=== PATIENT | male | born 1975 | race Caucasian/White ===

== ENCOUNTER 2017-05-21 11:38 | Emergency (ER) | payer SELFPAY | END 2017-05-21 15:11 | disposition left against medical advice (07) | LOC: M ED 11:38 | DX: M79.673 Pain in unspecified foot (principal); Z53.21 Procedure and treatment not carried out due to patient leaving prior to being seen by health care provider ==

== ENCOUNTER 2017-12-10 18:18 | Emergency (ER) | payer MEDICAID, SELFPAY ==
[2017-12-10] MEDS: PERCOCET 5MG/325MG TAB PO (19:27)
== END 2017-12-10 19:41 | disposition home or self-care (01) ==
LOC: M ED 18:18
DX: M54.5 Low back pain (principal); G89.29 Other chronic pain; I10 Essential (primary) hypertension; F17.200 Nicotine dependence, unspecified, uncomplicated; Z79.899 Other long term (current) drug therapy
CPT/HCPCS: 99283

== ENCOUNTER 2018-05-09 01:16 | Emergency (ER) | payer MEDICAID, OTHER ==
[~2018-05-09] VITALS: Ht 170.2 cm; Wt 95.8 kg
[~2018-05-09 01:16] MED LIST: FOLI400T PO; IBUP200C25 PO; ONETAB4 PO; PERC5TAB12 PO
[2018-05-09] MEDS ORDERED: APAP500T10 PO (01:24)
--- NOTE | 2018-05-09 01:59 | REP ---
Clinical: Acute chest pain . Comparison: None . Findings: The mediastinum and cardiac silhouette are stable and within normal limits for portable technique. The lung angulo are clear without acute consolidation, effusion, or pneumothorax. Small focal area of suspected linear scarring versus atelectasis at the left base. Skeletal structures are intact. Impression: Small area of scarring versus atelectasis at the left base. No acute cardiopulmonary process appreciated. Electronically Signed by Kashif Randhawa MD 05/09/2018 01:51 A
[2018-05-09 02:23] LABS: BASO # 0.1 10^3/uL (0.0-0.2); BASO % 0.9 % (0.0-1.0); EOS # 0.2 10^3/uL (0.0-0.50); EOS % 2.6 % (0.0-3.0); HEMATOCRIT 44.3 % (42.0-52.0); HEMOGLOBIN 14.4 g/dl (13.5-17.5); LYMPH # 2.2 10^3/uL (1.5-4.5); LYMPH % 33.5 % (24.0-44.0); MEAN CORPUSCULAR HEMOGLOBIN 29.8 pg (27.0-33.0); MEAN CORPUSCULAR HGB CONC 32.5 g/dl (32.0-36.5); MEAN CORPUSCULAR VOLUME 91.7 fl (80.0-96.0); MONO # 0.7 10^3/uL (0.0-0.8); MONO % 10.9 % (0.0-5.0); NEUTROPHILS # 3.4 10^3/uL (1.8-7.7); NEUTROPHILS % 51.3 % (36.0-66.0); PLATELET COUNT, AUTOMATED 231 10^3/uL (150-450); RED BLOOD COUNT 4.83 10^6/uL (4.30-6.10); WHITE BLOOD COUNT 6.6 10^3/uL (4.0-10.0)
[2018-05-09 02:39] LABS: INR 0.93; PROTHROMBIN TIME 12.5 SECONDS (12.1-14.4)
[2018-05-09 02:47] LABS: ALBUMIN 3.4 GM/DL (3.2-5.2); ALT/SGPT 30 U/L (12-78); BILIRUBIN,TOTAL 0.2 MG/DL (0.2-1.0); BLOOD UREA NITROGEN 14 MG/DL (7-18); CALCIUM LEVEL 8.6 MG/DL (8.5-10.1); CARBON DIOXIDE LEVEL 28 MEQ/L (21-32); CHLORIDE LEVEL 108 MEQ/L (98-107); CPK CREATINE PHOSPHOKINASE 221 U/L (39-308); CREATININE FOR GFR 0.98 MG/DL (0.70-1.30); GLOMERULAR FILTRATION RATE > 60.0 (>60); GLUCOSE, FASTING 97 MG/DL (70-100); LIPASE 164 U/L (73-393); MB/CK RELATIVE INDEX 0.68 (< OR =4); POTASSIUM SERUM 4.3 MEQ/L (3.5-5.1); SODIUM LEVEL 143 MEQ/L (136-145); TOTAL PROTEIN 6.6 GM/DL (6.4-8.2); TROPONIN I < 0.02 NG/ML (< 0.10)
[2018-05-09] MEDS ORDERED: dexameTHASONE 20 MG/5 ML VIAL (J1100) IV ONE (03:15)
[2018-05-09] MEDS ORDERED: IPRATROPIUM 0.5MG/ALBUTEROL 2.5MG INH SOL UD 3ML (DUONEB)(J7620) NEB ONE (03:15)
[2018-05-09] MEDS ORDERED: ZITHTAB PO (04:51)
[2018-05-09] MEDS ORDERED: PRED20TA PO (04:51)
[2018-05-09 05:00] VITALS: BP 127/79
--- NOTE | 2018-05-10 12:32 | ECGEPIP ---
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
== END 2018-05-09 05:09 | disposition home or self-care (01) ==
LOC: M ED 01:16
DX: J20.9 Acute bronchitis, unspecified (principal); I10 Essential (primary) hypertension; G89.29 Other chronic pain; M54.9 Dorsalgia, unspecified; Z72.0 Tobacco use; Z79.899 Other long term (current) drug therapy
CPT/HCPCS: 71045; 80053; 82550; 82553; 83690; 85025; 85610; 93005; 93041; 94640; 94760; 96374; 99285; J1100

== ENCOUNTER 2018-05-25 17:02 | Emergency (ER) | payer OTHER ==
[~2018-05-25] VITALS: Ht 170.2 cm; Wt 95.9 kg
[~2018-05-25 17:02] MED LIST changes: +APAP500T10 PO; +PRED20TA PO; +ZITHTAB PO
[2018-05-25 17:34] LABS: BASO # 0.1 10^3/uL (0.0-0.2); BASO % 0.7 % (0.0-1.0); EOS # 0.1 10^3/uL (0.0-0.50); EOS % 1.6 % (0.0-3.0); HEMATOCRIT 50.6 % (42.0-52.0); HEMOGLOBIN 16.8 g/dl (13.5-17.5); LYMPH # 1.6 10^3/uL (1.5-4.5); LYMPH % 22.2 % (24.0-44.0); MEAN CORPUSCULAR HGB CONC 33.2 g/dl (32.0-36.5); MEAN CORPUSCULAR VOLUME 90.4 fl (80.0-96.0); MONO # 0.8 10^3/uL (0.0-0.8); MONO % 10.6 % (0.0-5.0); NEUTROPHILS # 4.7 10^3/uL (1.8-7.7); NEUTROPHILS % 63.8 % (36.0-66.0); PLATELET COUNT, AUTOMATED 269 10^3/uL (150-450); WHITE BLOOD COUNT 7.3 10^3/uL (4.0-10.0)
[2018-05-25 17:46] LABS: BLOOD UREA NITROGEN 12 MG/DL (7-18); CALCIUM LEVEL 9.2 MG/DL (8.5-10.1); CARBON DIOXIDE LEVEL 27 MEQ/L (21-32); CHLORIDE LEVEL 106 MEQ/L (98-107); CPK CREATINE PHOSPHOKINASE 158 U/L (39-308); CREATININE FOR GFR 0.92 MG/DL (0.70-1.30); GLOMERULAR FILTRATION RATE > 60.0 (>60); GLUCOSE, FASTING 92 MG/DL (70-100); MB/CK RELATIVE INDEX 1.01 (< OR =4); POTASSIUM SERUM 4.2 MEQ/L (3.5-5.1); SODIUM LEVEL 141 MEQ/L (136-145); TROPONIN I < 0.02 NG/ML (< 0.10)
[2018-05-25] MEDS ORDERED: ASPIRIN 81 MG CHEW TABLET PO ONE (18:00)
[2018-05-25 18:17] LABS: ALT/SGPT 43 U/L (12-78); BILIRUBIN,DIRECT 0.2 MG/DL (0.0-0.2); BILIRUBIN,TOTAL 0.7 MG/DL (0.2-1.0); LIPASE 110 U/L (73-393)
--- NOTE | 2018-05-25 19:16 | REP ---
Chest two views HISTORY: Chest pain Comparison: 05/09/2018 The lungs are clear. The heart is normal in size. The pulmonary vasculature is normal in appearance. The bony structure is intact. IMPRESSION: No acute disease. Electronically Signed by Thiago Hogan MD 05/25/2018 07:07 P
[2018-05-25 22:30] VITALS: BP 112/62
[2018-05-25 22:56] LABS: CPK CREATINE PHOSPHOKINASE 116 U/L (39-308); MB/CK RELATIVE INDEX 1.03 (< OR =4); TROPONIN I < 0.02 NG/ML (< 0.10)
--- NOTE | 2018-05-26 13:43 | ECGEPIP ---
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
--- NOTE | 2018-05-26 13:45 | ECGEPIP ---
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
== END 2018-05-25 23:04 | disposition home or self-care (01) ==
LOC: M ED 17:02
DX: R07.9 Chest pain, unspecified (principal); J02.9 Acute pharyngitis, unspecified; Z82.49 Family history of ischemic heart disease and other diseases of the circulatory system; F17.210 Nicotine dependence, cigarettes, uncomplicated

== ENCOUNTER 2018-07-04 10:58 | Emergency (ER) | payer OTHER ==
[~2018-07-04] VITALS: Ht 170.2 cm; Wt 98.1 kg
[2018-07-04 10:59] VITALS: BP 135/74
--- NOTE | 2018-07-04 12:50 | REP ---
LEFT KNEE, FIVE VIEWS: HISTORY: Pain. There is no acute fracture or dislocation. The joint spaces are normal in appearance. IMPRESSION: There is no acute fracture or dislocation. Electronically Signed by Thiago Hogan MD 07/04/2018 01:06 P
== END 2018-07-04 12:37 | disposition home or self-care (01) ==
LOC: M ED 10:58
DX: M25.562 Pain in left knee (principal); I10 Essential (primary) hypertension; M54.9 Dorsalgia, unspecified; F17.210 Nicotine dependence, cigarettes, uncomplicated; Z79.899 Other long term (current) drug therapy

== ENCOUNTER → 2018-07-31 | Outpatient (CLI) | payer OTHER ==
[2018-07-31 08:16] LABS: BASO # 0.1 10^3/uL (0.0-0.2); BASO % 0.5 % (0.0-1.0); EOS # 0.1 10^3/uL (0.0-0.50); EOS % 1.2 % (0.0-3.0); HEMATOCRIT 46.4 % (42.0-52.0); HEMOGLOBIN 15.6 g/dl (13.5-17.5); LYMPH # 2.1 10^3/uL (1.5-4.5); MEAN CORPUSCULAR HEMOGLOBIN 30.6 pg (27.0-33.0); MEAN CORPUSCULAR HGB CONC 33.6 g/dl (32.0-36.5); MEAN CORPUSCULAR VOLUME 91.2 fl (80.0-96.0); MONO # 0.9 10^3/uL (0.0-0.8); MONO % 8.8 % (0.0-5.0); NEUTROPHILS # 6.7 10^3/uL (1.8-7.7); NEUTROPHILS % 67.9 % (36.0-66.0); PLATELET COUNT, AUTOMATED 228 10^3/uL (150-450); RED BLOOD COUNT 5.09 10^6/uL (4.30-6.10); WHITE BLOOD COUNT 9.9 10^3/uL (4.0-10.0)
[2018-07-31 08:47] LABS: ALBUMIN 3.7 GM/DL (3.2-5.2); ALT/SGPT 32 U/L (12-78); BILIRUBIN,TOTAL 0.5 MG/DL (0.2-1.0); BLOOD UREA NITROGEN 13 MG/DL (7-18); CALCIUM LEVEL 8.8 MG/DL (8.5-10.1); CARBON DIOXIDE LEVEL 26 MEQ/L (21-32); CHLORIDE LEVEL 108 MEQ/L (98-107); CHOLESTEROL LEVEL 224 MG/DL (<200); CHOLESTEROL RISK RATIO 4.666 (<5); CREATININE FOR GFR 0.88 MG/DL (0.70-1.30); GLOMERULAR FILTRATION RATE > 60.0 (>60); GLUCOSE, FASTING 94 MG/DL (70-100); HDL CHOLESTEROL 48 MG/DL (>40); LDL CHOLESTEROL 151 MG/DL (<100); NON-HDL-C 176 MG/DL; SODIUM LEVEL 140 MEQ/L (136-145); TOTAL PROTEIN 6.4 GM/DL (6.4-8.2); TRIGLYCERIDES LEVEL 125 MG/DL (<150)
== END ==
LOC: M LAB 07:39
PROVIDERS: ATTEND Physician Assistant
DX: E78.2 Mixed hyperlipidemia (principal); R06.02 Shortness of breath

== ENCOUNTER 2018-10-15 03:10 | Emergency (ER) | payer OTHER ==
[~2018-10-15] VITALS: Ht 170.2 cm; Wt 95.5 kg
[2018-10-15] MEDS ORDERED: [UNRECOGNIZED DRUG - OTHER] (03:14)
[2018-10-15 03:50] LABS: BASO # 0.1 10^3/uL (0.0-0.2); BASO % 0.8 % (0.0-1.0); EOS # 0.2 10^3/uL (0.0-0.50); EOS % 2.3 % (0.0-3.0); HEMATOCRIT 49.5 % (42.0-52.0); HEMOGLOBIN 16.3 g/dl (13.5-17.5); LYMPH # 1.5 10^3/uL (1.5-4.5); LYMPH % 18.6 % (24.0-44.0); MEAN CORPUSCULAR HEMOGLOBIN 30.9 pg (27.0-33.0); MEAN CORPUSCULAR HGB CONC 32.9 g/dl (32.0-36.5); MEAN CORPUSCULAR VOLUME 93.8 fl (80.0-96.0); MONO # 0.8 10^3/uL (0.0-0.8); MONO % 9.5 % (0.0-5.0); NEUTROPHILS # 5.4 10^3/uL (1.8-7.7); NEUTROPHILS % 67.7 % (36.0-66.0); PLATELET COUNT, AUTOMATED 245 10^3/uL (150-450); RED BLOOD COUNT 5.28 10^6/uL (4.30-6.10); WHITE BLOOD COUNT 7.9 10^3/uL (4.0-10.0)
[2018-10-15 04:12] LABS: INR 0.93; PARTIAL THROMBOPLASTIN TIME 28.1 SECONDS (25.4-37.6); PROTHROMBIN TIME 12.6 SECONDS (12.1-14.4)
[2018-10-15 04:19] LABS: ALBUMIN 3.5 GM/DL (3.2-5.2); ALT/SGPT 47 U/L (12-78); BILIRUBIN,TOTAL 0.4 MG/DL (0.2-1.0); BLOOD UREA NITROGEN 10 MG/DL (7-18); CALCIUM LEVEL 8.7 MG/DL (8.5-10.1); CARBON DIOXIDE LEVEL 26 MEQ/L (21-32); CHLORIDE LEVEL 108 MEQ/L (98-107); CK-MB VALUE MASS < 1.0 NG/ML (<3.6); CPK CREATINE PHOSPHOKINASE 95 U/L (39-308); CREATININE FOR GFR 1.06 MG/DL (0.70-1.30); GLOMERULAR FILTRATION RATE > 60.0 (>60); GLUCOSE, FASTING 178 MG/DL (70-100); MB/CK RELATIVE INDEX 1.05 (< OR =4); POTASSIUM SERUM 4.1 MEQ/L (3.5-5.1); SODIUM LEVEL 141 MEQ/L (136-145); TOTAL PROTEIN 5.9 GM/DL (6.4-8.2); TROPONIN I < 0.02 NG/ML (< 0.10)
[2018-10-15] MEDS ORDERED: ISOVUE-370 76% 100ML VIAL (Q9967) As Ordered ONE (04:25)
[2018-10-15] MEDS ORDERED: KETOROLAC 30 MG/ML VIAL (J1885) IV ONE (04:30)
[2018-10-15] MEDS ORDERED: NS 500 ML IV ONE (04:30)
[2018-10-15 05:46] LABS: CK-MB VALUE MASS < 1.0 NG/ML (<3.6); CPK CREATINE PHOSPHOKINASE 81 U/L (39-308); MB/CK RELATIVE INDEX 1.23 (< OR =4); TROPONIN I < 0.02 NG/ML (< 0.10)
--- NOTE | 2018-10-15 05:46 | REPVR ---
EXAM: CT Angiography Chest With Contrast EXAM DATE/TIME: 10/15/2018 4:20 AM CLINICAL HISTORY: 43 years old, male; Chest pain; Type not specified; Additional info: Cp TECHNIQUE: Imaging protocol: Axial computed tomographic angiography images of the chest with intravenous contrast using CT angiography protocol. Coronal and sagittal reformatted images were created and reviewed. 3D rendering: MIP reconstructed images were created and reviewed. Radiation optimization: All CT scans at this facility use at least one of these dose optimization techniques: automated exposure control; mA and/or kV adjustment per patient size (includes targeted exams where dose is matched to clinical indication); or iterative reconstruction. Contrast material: ISO; Contrast volume: 75 ml; Contrast route: AC; COMPARISON: CR PORTABLE CHEST X-RAY 05/25/2018 5:42 PM FINDINGS: Pulmonary arteries: The main pulmonary artery measures 27 mm. No pulmonary embolism is identified. Aorta: The ascending thoracic aorta measures 27 mm. Other arteries: The left vertebral artery originates tracking from the arch. Lungs: Minimal patchy ground glass infiltrates bilaterally, greatest in the lower lobes. Pleural space: Normal. No pneumothorax. No pleural effusion. Heart: Normal. No cardiomegaly. No pericardial effusion. Kidneys and ureters: There is a left renal cyst measuring up to 17 mm. Lymph nodes: Small mediastinal lymph nodes which are within normal limits. Bones/joints: Unremarkable. No acute fracture. Soft tissues: Unremarkable. IMPRESSION: 1. Minimal patchy ground glass infiltrates bilaterally, greatest in the lower lobes. 2. Otherwise negative CTA chest. No pulmonary embolism is identified. Electronically signed by: Alber Ricardo On 10/15/2018 05:45:28 AM
[2018-10-15 06:01] VITALS: BP 138/89
--- NOTE | 2018-10-15 18:14 | ED PDOC ---
Post-Departure Follow-Up larissa gan faxed formal report of cta chest for fu Maria E Lake MD October 15, 2018 18:14
--- NOTE | 2018-10-15 19:37 | ECGEPIP ---
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
--- NOTE | 2018-10-15 19:38 | ECGEPIP ---
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
== END 2018-10-15 06:08 | disposition home or self-care (01) ==
LOC: M ED 03:10
DX: R07.1 Chest pain on breathing (principal); K21.9 Gastro-esophageal reflux disease without esophagitis; Z72.0 Tobacco use
CPT/HCPCS: 71275; 80053; 82550; 82553; 85025; 85610; 85730; 93005; 93041; 99284; J1885; Q9967

== ENCOUNTER 2019-01-31 02:06 | Emergency (ER) | payer OTHER ==
[~2019-01-31] VITALS: Ht 170.2 cm; Wt 103.2 kg
[~2019-01-31 02:06] MED LIST changes: +[UNRECOGNIZED DRUG - OTHER]
[2019-01-31] MEDS ORDERED: IBUP-1022 PO (07:15)
[2019-01-31] MEDS ORDERED: OXYC-517 PO (07:15)
[2019-01-31] MEDS ORDERED: LIDO5DIS41 TD (07:15)
[2019-01-31] MEDS ORDERED: CYCL5TAB PO (07:15)
[2019-01-31] MEDS ORDERED: ACET-683 PO (07:15)
[2019-01-31 07:52] VITALS: BP 134/90
== END 2019-01-31 07:57 | disposition home or self-care (01) ==
LOC: M ED 02:06
DX: G89.11 Acute pain due to trauma (principal); M54.5 Low back pain; I10 Essential (primary) hypertension; Z79.899 Other long term (current) drug therapy; F17.210 Nicotine dependence, cigarettes, uncomplicated

== ENCOUNTER → 2019-03-09 | Outpatient (CLI) | payer OTHER ==
[~2019-03-09] MED LIST changes: +ACET-683 PO; +CYCL5TAB PO; +IBUP-1022 PO; +LIDO5DIS41 TD; +OXYC-517 PO
--- NOTE | 2019-03-09 20:22 | REP ---
Clinical: Follow up abnormal lung findings. Technique: Axial noncontrast images from the thoracic inlet to the upper abdomen with coronal and sagittal re-formations. Comparison: 10/15/2018. Findings: Lung angulo demonstrate mild chronic-appearing age-related changes along with minimal scarring. 2 mm calcified granuloma in the right lower lobe identified. Previously noted ground-glass opacities have resolved. No acute consolidation, effusion, or pneumothorax. Tracheobronchial tree is relatively patent. No obvious adenopathy. Mediastinum demonstrates atherosclerotic changes to the thoracic aorta and coronary arteries without aortic aneurysm, cardiomegaly or pericardial effusion. Surrounding musculoskeletal structures without focal osseous abnormality. Limited upper abdomen demonstrates normal bilateral adrenal glands. Impression: 1. Mild chronic-appearing scattered changes. 2. Previously noted ground-glass opacities resolved. 3. No acute mediastinal or pleuroparenchymal process appreciated. Electronically Signed by Kashif Randhawa MD 03/09/2019 08:13 P
== END ==
LOC: M RAD 15:54
PROVIDERS: ATTEND Internal Medicine Pulmonary Disease
DX: J84.10 Pulmonary fibrosis, unspecified (principal); I70.0 Atherosclerosis of aorta; I25.10 Atherosclerotic heart disease of native coronary artery without angina pectoris

== ENCOUNTER → 2019-04-09 | Outpatient (CLI) | payer MEDICAID, OTHER, SELFPAY ==
--- NOTE | 2019-04-14 18:52 | SLEEPCENT ---
DATE OF PROCEDURE: 04/09/2019 INTERPRETATION Nocturnal polysomnography was performed for evaluation of sleep apnea syndrome symptoms consisting of excessive daytime sleepiness, snoring, observed apnea, gasping respirations, morning headaches, and nonrestorative sleep. A total of 8 hours and 35 minutes of data was reviewed for the entire polysomnogram with 344 minutes of sleep identified. Sleep latency was 15 minutes. REM latency was 93.5 minutes. All stages of sleep observed. Sleep efficiency was 88.3%. EKG showed normal sinus rhythm with an average heart rate of 78 beats per minute. Speeding and slowing was noted surrounding some respiratory events. No epileptiform discharge. This was a split night study: Part 1: Diagnostic study. There were 85 respiratory events identified of 10 seconds in duration or longer for an AHI of 85 during the first 88.5 minutes of sleep. The events were predominantly obstructive apnea/hypopneas. Respiratory arousal index (PYLE) was 14.9. Oxygen saturation danuta was 80%. Periodic limb movement index was elevated at 28.9. Part 2 C-PAP titration: Having clearly identified severe obstructive sleep apnea during the diagnostic portion of this study, the patient was fit with a ResMed Quattro full-face mask of small size, 5 cm of water pressure was applied to the circuit and the lights were dimmed. C-PAP initially begun at 5 cm of water pressure and was taken to a high of 19 cm of water pressure, although he appeared to do best on 17 cm of water pressure. On this setting his apnea-hypopnea index (AHI) was 0 and his PYLE was 0.5. Oxygen saturation danuta was 89%. Periodic limb movement index was 11.5. Supine REM sleep was seen on this pressure with a reasonably good waveform. IMPRESSION 1. Obstructive sleep apnea, severe, reasonably palliated on C-PAP at 17 cm of water pressure including supine REM sleep. 2. Periodic limb movement, moderate on diagnostic study and mild on C-PAP therapy. RECOMMENDATIONS Recommend continuation of C-PAP therapy at the above pressure via a small ResMed Quattro full-face mask or mask of his preference. Clinical correlation will be necessary to ensure eradication of symptoms.
== END ==
LOC: M SLEEP 19:40
PROVIDERS: ATTEND Internal Medicine Pulmonary Disease
DX: G47.33 Obstructive sleep apnea (adult) (pediatric) (principal); G47.61 Periodic limb movement disorder

== ENCOUNTER 2019-05-23 13:48 | Emergency (ER) | payer MEDICAID, OTHER ==
[~2019-05-23] VITALS: Ht 170.2 cm; Wt 109.9 kg
[2019-05-23] MEDS ORDERED: CHAN1PAK13 PO (14:06)
[2019-05-23] MEDS ORDERED: MOBI15TA PO (14:06)
[2019-05-23 15:07] LABS: INFLUENZA A AMPLIFICATION NEGATIVE (NEGATIVE); INFLUENZA B AMPLIFICATION NEGATIVE (NEGATIVE)
[2019-05-23 15:43] VITALS: BP 138/93
--- NOTE | 2019-05-23 16:17 | REP ---
Chest x-ray: Two views. History: Cough. Comparison chest x-ray: May 25, 2018. Findings: The lungs are well inflated and clear. Pleural angles are sharp. Heart size is normal. Pulmonary vasculature is not increased. No significant bony abnormality. Impression: No active disease. Electronically Signed by Peter Jasso MD 05/23/2019 04:08 P
== END 2019-05-23 15:54 | disposition home or self-care (01) ==
LOC: M ED 13:48
DX: J40 Bronchitis, not specified as acute or chronic (principal); I10 Essential (primary) hypertension; K21.9 Gastro-esophageal reflux disease without esophagitis; F17.200 Nicotine dependence, unspecified, uncomplicated; G47.33 Obstructive sleep apnea (adult) (pediatric); Z79.899 Other long term (current) drug therapy

== ENCOUNTER → 2019-09-01 | Outpatient (CLI) | payer OTHER ==
[~2019-09-01] MED LIST changes: +CHAN1PAK13 PO; +MOBI15TA PO
[2019-09-01 13:29] LABS: ALBUMIN 3.8 GM/DL (3.2-5.2); ALT/SGPT 54 U/L (12-78); BILIRUBIN,TOTAL 0.5 MG/DL (0.2-1.0); BLOOD UREA NITROGEN 16 MG/DL (7-18); CARBON DIOXIDE LEVEL 29 MEQ/L (21-32); CHLORIDE LEVEL 107 MEQ/L (98-107); CHOLESTEROL LEVEL 262 MG/DL (<200); CHOLESTEROL RISK RATIO 5.954 (<5); CREATININE FOR GFR 0.98 MG/DL (0.70-1.30); GLOMERULAR FILTRATION RATE > 60.0 (>60); GLUCOSE, FASTING 94 MG/DL (70-100); HDL CHOLESTEROL 44 MG/DL (>40); LDL CHOLESTEROL 176 MG/DL (<100); NON-HDL-C 218 MG/DL; POTASSIUM SERUM 4.2 MEQ/L (3.5-5.1); SODIUM LEVEL 139 MEQ/L (136-145); TOTAL PROTEIN 6.6 GM/DL (6.4-8.2); TRIGLYCERIDES LEVEL 209 MG/DL (<150)
== END ==
LOC: M WUC 10:15
PROVIDERS: ATTEND Physician Assistant
DX: E78.00 Pure hypercholesterolemia, unspecified (principal)

== ENCOUNTER → 2019-10-15 | Outpatient (CLI) | payer OTHER ==
[2019-10-15 18:39] LABS: BASO # 0.1 10^3/uL (0.0-0.2); BASO % 1.3 % (0.0-1.0); EOS # 0.1 10^3/uL (0.0-0.5); EOS % 2.3 % (0.0-3.0); HEMATOCRIT 47.2 % (42.0-52.0); HEMOGLOBIN 15.8 g/dl (13.5-17.5); MEAN CORPUSCULAR HEMOGLOBIN 30.9 pg (27.0-33.0); MEAN CORPUSCULAR HGB CONC 33.5 g/dl (32.0-36.5); MEAN CORPUSCULAR VOLUME 92.4 fl (80.0-96.0); MONO # 0.7 10^3/uL (0.0-0.8); MONO % 11.7 % (0.0-5.0); NEUTROPHILS # 3.2 10^3/uL (1.5-8.5); NEUTROPHILS % 51.1 % (36.0-66.0); PLATELET COUNT, AUTOMATED 253 10^3/uL (150-450); RED BLOOD COUNT 5.11 10^6/uL (4.30-6.10); WHITE BLOOD COUNT 6.2 10^3/uL (4.0-10.0)
[2019-10-15 18:51] LABS: APPEARANCE, URINE CLEAR (CLEAR); BACTERIA, URINE AUTO NEGATIVE (NEGATIVE); BILIRUBIN, URINE AUTO NEGATIVE (NEGATIVE); BLOOD, URINE BLOOD 2+ (NEGATIVE); COLOR, URINE YELLOW (YELLOW); GLUCOSE, URINE (UA) AUTO NEGATIVE (NEGATIVE); KETONE, URINE AUTO TRACE mg/dL (NEGATIVE); LEUKOCYTE ESTERASE, URINE AUTO NEGATIVE (NEGATIVE); MUCUS, URINE SMALL (NEGATIVE); NITRITE, URINE AUTO NEGATIVE (NEGATIVE); PROTEIN, URINE AUTO NEGATIVE (NEGATIVE); RBC, URINE AUTO 6 /HPF (0-3); SPECIFIC GRAVITY URINE AUTO 1.025 (1.002-1.035); SQUAMOUS EPITHELIAL CELL UR AU 0 /HPF (0-6); UROBILINOGEN, URINE AUTO 0.2 mg/dL (0.0-2.0); WBC, URINE AUTO 1 /HPF (0-3)
[2019-10-15 18:52] LABS: ALBUMIN 3.5 GM/DL (3.2-5.2); ALT/SGPT 52 U/L (12-78); BILIRUBIN,TOTAL 0.4 MG/DL (0.2-1.0); BLOOD UREA NITROGEN 12 MG/DL (7-18); CALCIUM LEVEL 8.5 MG/DL (8.5-10.1); CARBON DIOXIDE LEVEL 27 MEQ/L (21-32); CHLORIDE LEVEL 107 MEQ/L (98-107); CREATININE FOR GFR 1.06 MG/DL (0.70-1.30); GLOMERULAR FILTRATION RATE > 60.0 (>60); GLUCOSE, FASTING 124 MG/DL (70-100); POTASSIUM SERUM 4.5 MEQ/L (3.5-5.1); SODIUM LEVEL 141 MEQ/L (136-145); TOTAL PROTEIN 6.4 GM/DL (6.4-8.2)
== END ==
LOC: M WUC 11:31
PROVIDERS: ATTEND Nurse Practitioner Family
DX: Z01.812 Encounter for preprocedural laboratory examination (principal)

== ENCOUNTER 2020-02-15 14:28 | Outpatient (RCR) | payer OTHER | END 2020-02-17 | LOC: M PT 14:28 | PROVIDERS: ATTEND Physician Assistant | DX: Z96.611 Presence of right artificial shoulder joint (principal) ==

== ENCOUNTER → 2020-03-09 | Outpatient (CLI) | payer OTHER ==
[2020-03-09 11:20] LABS: BASO # 0.1 10^3/uL (0.0-0.2); BASO % 0.8 % (0.0-1.0); EOS # 0.3 10^3/uL (0.0-0.5); HEMATOCRIT 48.7 % (42.0-52.0); HEMOGLOBIN 15.6 g/dl (13.5-17.5); LYMPH # 2.4 10^3/uL (1.5-5.0); LYMPH % 26.4 % (24.0-44.0); MEAN CORPUSCULAR VOLUME 93.7 fl (80.0-96.0); MONO # 1.1 10^3/uL (0.0-0.8); MONO % 11.6 % (0.0-5.0); NEUTROPHILS # 4.9 10^3/uL (1.5-8.5); NEUTROPHILS % 54.1 % (36.0-66.0); PLATELET COUNT, AUTOMATED 306 10^3/uL (150-450); WHITE BLOOD COUNT 9.1 10^3/uL (4.0-10.0)
[2020-03-09 11:48] LABS: HEMOGLOBIN A1c 6.2 %
[2020-03-09 11:51] LABS: ALBUMIN 3.3 GM/DL (3.2-5.2); ALT/SGPT 86 U/L (12-78); BILIRUBIN,TOTAL 0.3 MG/DL (0.2-1.0); BLOOD UREA NITROGEN 15 MG/DL (7-18); CARBON DIOXIDE LEVEL 27 MEQ/L (21-32); CHLORIDE LEVEL 106 MEQ/L (98-107); CHOLESTEROL LEVEL 252 MG/DL (<200); CHOLESTEROL RISK RATIO 5.478 (<5); CREATININE FOR GFR 0.85 MG/DL (0.70-1.30); GLOMERULAR FILTRATION RATE > 60.0 (>60); GLUCOSE, FASTING 118 MG/DL (70-100); HDL CHOLESTEROL 46 MG/DL (>40); LDL CHOLESTEROL 149 MG/DL (<100); NON-HDL-C 206 MG/DL; POTASSIUM SERUM 4.3 MEQ/L (3.5-5.1); SODIUM LEVEL 138 MEQ/L (136-145); TOTAL PROTEIN 6.7 GM/DL (6.4-8.2); TRIGLYCERIDES LEVEL 283 MG/DL (<150)
== END ==
LOC: M WUC 08:06
PROVIDERS: ATTEND Nurse Practitioner Family
DX: Z00.00 Encounter for general adult medical examination without abnormal findings (principal)

== ENCOUNTER 2020-03-15 15:15 | Outpatient (RCR) | payer OTHER | END 2020-03-19 | LOC: M PT 15:15 | PROVIDERS: ATTEND Physician Assistant | DX: Z96.611 Presence of right artificial shoulder joint (principal) ==

== ENCOUNTER → 2020-08-09 | Outpatient (CLI) | payer OTHER ==
[~2020-08-09] MED LIST changes: -FOLI400T PO; +FOLI400T13 PO
[2020-08-09 15:22] LABS: BASO # 0.1 10^3/uL (0.0-0.2); BASO % 0.8 % (0.0-1.0); EOS # 0.2 10^3/uL (0.0-0.5); EOS % 1.9 % (0.0-3.0); HEMOGLOBIN 15.4 g/dl (13.5-17.5); LYMPH # 1.7 10^3/uL (1.5-5.0); LYMPH % 21.3 % (24.0-44.0); MEAN CORPUSCULAR HGB CONC 32.8 g/dl (32.0-36.5); MEAN CORPUSCULAR VOLUME 91.4 fl (80.0-96.0); MONO # 0.9 10^3/uL (0.0-0.8); MONO % 11.3 % (2.0-8.0); NEUTROPHILS % 63.1 % (36.0-66.0); PLATELET COUNT, AUTOMATED 261 10^3/uL (150-450); RED BLOOD COUNT 5.14 10^6/uL (4.30-6.10)
[2020-08-09 15:49] LABS: ALBUMIN 3.7 GM/DL (3.2-5.2); ALT/SGPT 80 U/L (12-78); BILIRUBIN,TOTAL 0.5 MG/DL (0.2-1.0); BLOOD UREA NITROGEN 15 MG/DL (7-18); CALCIUM LEVEL 9.6 MG/DL (8.5-10.1); CARBON DIOXIDE LEVEL 28 MEQ/L (21-32); CHLORIDE LEVEL 103 MEQ/L (98-107); CREATININE FOR GFR 0.85 MG/DL (0.70-1.30); GLOMERULAR FILTRATION RATE > 60.0 (>60); GLUCOSE, FASTING 91 MG/DL (70-100); LIPASE 103 U/L (73-393); POTASSIUM SERUM 3.9 MEQ/L (3.5-5.1); SODIUM LEVEL 138 MEQ/L (136-145)
[2020-08-09 15:57] LABS: MALB URINE SIEMENS 12.5 MG/L; MAU/CREAT RATIO 6.2 MCG/MG (0.0-30.0)
[2020-08-09 16:45] LABS: HEMOGLOBIN A1c 5.8 %
[2020-08-11 16:10] LABS: H PYLORI SERUM QUANT IGA <9.0 units (0.0-8.9); H PYLORI SERUM QUANT IGM <9.0 units (0.0-8.9); H PYLORI SERUM QUANT IgG ABY 0.24 (0.00-0.79)
== END ==
LOC: M PLALAB 14:07
PROVIDERS: ATTEND Nurse Practitioner Family
DX: R73.03 Prediabetes (principal); K21.9 Gastro-esophageal reflux disease without esophagitis

== ENCOUNTER → 2021-02-09 | Outpatient (CLI) | payer OTHER ==
[2021-02-09 17:01] LABS: BLOOD UREA NITROGEN 17 MG/DL (7-18); CALCIUM LEVEL 9.1 MG/DL (8.5-10.1); CARBON DIOXIDE LEVEL 29 MEQ/L (21-32); CHLORIDE LEVEL 107 MEQ/L (98-107); CREATININE FOR GFR 1.03 MG/DL (0.70-1.30); GLOMERULAR FILTRATION RATE > 60.0 (>60); GLUCOSE, FASTING 72 MG/DL (70-100); POTASSIUM SERUM 4.2 MEQ/L (3.5-5.1); SODIUM LEVEL 140 MEQ/L (136-145)
[2021-02-09 17:08] LABS: HEMOGLOBIN A1c 5.4 %
== END ==
LOC: M WUC 14:33
PROVIDERS: ATTEND Nurse Practitioner Family
DX: R73.03 Prediabetes (principal)

== ENCOUNTER 2021-04-17 14:03 | Emergency (ER) | payer OTHER ==
[~2021-04-17] VITALS: Ht 170.2 cm; Wt 99.8 kg
[2021-04-17 14:04] VITALS: BP 138/78
[2021-04-18] MEDS ORDERED: PANT40TA29 PO (17:29)
[2021-04-18] MEDS ORDERED: METF500T13 PO (17:29)
[2021-04-18] MEDS ORDERED: ATOR40TA75 PO (17:29)
[2021-04-18] MEDS ORDERED: BUPR150T5 (17:29)
[2021-04-18] MEDS ORDERED: FLUO40CA PO (17:29)
[2021-07-11] MEDS ORDERED: GABA-282 PO (07:26)
[2021-07-11] MEDS ORDERED: BUPR1TAB56 PO (07:26)
[2021-07-11] MEDS ORDERED: TOPI50TA9 PO (07:26)
[2021-07-11] MEDS ORDERED: PROP20TA72 PO (07:26)
[2021-07-11] MEDS ORDERED: FLUO20CA22 PO (07:26)
[2021-07-11] MEDS ORDERED: ALBU8.5H INH (07:26)
== END 2021-04-17 22:35 | disposition left against medical advice (07) ==
LOC: M ED 14:03
DX: Z53.29 Procedure and treatment not carried out because of patient's decision for other reasons (principal)

== ENCOUNTER 2021-04-18 17:12 | Emergency (ER) | payer OTHER ==
[~2021-04-18] VITALS: Ht 170.2 cm; Wt 98.3 kg
[2021-04-18 17:13] VITALS: BP 142/89
[2021-04-18] MEDS ORDERED: BUPR150T5 (17:29)
[2021-04-18] MEDS ORDERED: FLUO40CA PO (17:29)
[2021-04-18] MEDS ORDERED: ATOR40TA75 PO (17:29)
[2021-04-18] MEDS ORDERED: METF500T13 PO (17:29)
[2021-04-18] MEDS ORDERED: PANT40TA29 PO (17:29)
[2021-07-11] MEDS ORDERED: FLUO20CA22 PO (07:26)
[2021-07-11] MEDS ORDERED: ALBU8.5H INH (07:26)
[2021-07-11] MEDS ORDERED: PROP20TA72 PO (07:26)
[2021-07-11] MEDS ORDERED: TOPI50TA9 PO (07:26)
[2021-07-11] MEDS ORDERED: GABA-282 PO (07:26)
[2021-07-11] MEDS ORDERED: BUPR1TAB56 PO (07:26)
== END 2021-04-18 21:42 | disposition left against medical advice (07) ==
LOC: M ED 17:12
DX: Z53.29 Procedure and treatment not carried out because of patient's decision for other reasons (principal)

== ENCOUNTER → 2021-04-20 | Outpatient (CLI) | payer OTHER ==
[~2021-04-20] MED LIST changes: +ATOR40TA75; +BUPR150T5; +FLUO40CA; +METF500T13; +PANT40TA29
[2021-04-20 16:03] LABS: BASO # 0.1 10^3/uL (0.0-0.2); BASO % 0.8 % (0.0-1.0); EOS # 0.2 10^3/uL (0.0-0.5); EOS % 2.7 % (0.0-3.0); HEMATOCRIT 45.6 % (42.0-52.0); HEMOGLOBIN 14.3 g/dl (13.5-17.5); LYMPH # 1.7 10^3/uL (1.5-5.0); LYMPH % 23.6 % (24.0-44.0); MEAN CORPUSCULAR HEMOGLOBIN 29.3 pg (27.0-33.0); MEAN CORPUSCULAR HGB CONC 31.4 g/dl (32.0-36.5); MEAN CORPUSCULAR VOLUME 93.4 fl (80.0-96.0); MONO # 0.9 10^3/uL (0.0-0.8); MONO % 11.8 % (2.0-8.0); NEUTROPHILS # 4.4 10^3/uL (1.5-8.5); NEUTROPHILS % 59.7 % (36.0-66.0); PLATELET COUNT, AUTOMATED 276 10^3/uL (150-450); RED BLOOD COUNT 4.88 10^6/uL (4.30-6.10); WHITE BLOOD COUNT 7.4 10^3/uL (4.0-10.0)
[2021-04-20 16:47] LABS: ALBUMIN 3.6 GM/DL (3.2-5.2); ALT/SGPT 36 U/L (12-78); BILIRUBIN,TOTAL 0.6 MG/DL (0.2-1.0); BLOOD UREA NITROGEN 17 MG/DL (7-18); C REACTIVE PROTEIN QUANTITATIV 0.72 MG/DL (0.00-0.30); CALCIUM LEVEL 9.3 MG/DL (8.5-10.1); CARBON DIOXIDE LEVEL 27 MEQ/L (21-32); CHLORIDE LEVEL 105 MEQ/L (98-107); CREATININE FOR GFR 0.88 MG/DL (0.70-1.30); GLOMERULAR FILTRATION RATE > 60.0 (>60); GLUCOSE, FASTING 103 MG/DL (70-100); MAGNESIUM LEVEL 2.1 MG/DL (1.8-2.4); POTASSIUM SERUM 4.1 MEQ/L (3.5-5.1); RHEUMATOID FACTOR QUANT 12.9 IU/ML (<15.0); SODIUM LEVEL 139 MEQ/L (136-145); THYROID STIMULATING HORMONE 0.827 uIU/ML (0.358-3.740); TOTAL PROTEIN 6.6 GM/DL (6.4-8.2)
[2021-04-20 17:01] LABS: VITAMIN B12 LEVEL 321 PG/ML
[2021-04-20 17:03] LABS: FOLATE 6.9 NG/ML
[2021-04-20 17:08] LABS: ERYTHROCYTE SEDIMENTATION RATE 5 mm/hr (0-15)
[2021-04-22 16:11] LABS: ANTINUCLEAR ANTIBODIES DIRECT Negative (Negative); Lyme Disease IgG/IgM Antibodie <0.91 ISR (0.00-0.90); Lyme Disease IgM Ab Quantitati <0.80 index (0.00-0.79); SJOGREN'S ANTI SS-A <0.2 AI (0.0-0.9); SJOGREN'S ANTI SS-B <0.2 AI (0.0-0.9)
== END ==
LOC: M WUC 13:01
PROVIDERS: ATTEND Nurse Practitioner Family
DX: R21 Rash and other nonspecific skin eruption (principal); R51.9 Headache, unspecified

== ENCOUNTER → 2021-05-05 | Outpatient (CLI) | payer OTHER ==
[~2021-05-05] MED LIST changes: +ALBU8.5H INH; -ATOR40TA75; +ATOR40TA75 PO; +BUPR1TAB56 PO; +FLUO20CA22 PO; -FLUO40CA; +FLUO40CA PO; +GABA-282 PO; -METF500T13; +METF500T13 PO; -PANT40TA29; +PANT40TA29 PO; +PROP20TA72 PO; +TOPI50TA9 PO
== END ==
LOC: M RAD 11:19
PROVIDERS: ATTEND Nurse Practitioner Family
DX: R51.9 Headache, unspecified (principal)

== ENCOUNTER → 2021-07-20 | Outpatient (CLI) | payer OTHER | LOC: M LABSMTC 09:44 | PROVIDERS: ATTEND Anesthesiology | DX: Z11.52 Encounter for screening for COVID-19 (principal) ==

== ENCOUNTER 2021-07-25 08:32 | Day surgery (SDC) | payer OTHER ==
[~2021-07-25] VITALS: Ht 170.2 cm; Wt 96.2 kg
[~2021-07-25 08:32] MED LIST changes: +LIDOCAINE 2% 100MG/5ML SDV (FOR ANES.) As Ordered ONE; +NS 1,000 ML IV ONE; +propofoL 200 MG/20 ML VIAL As Ordered ONE
[2021-07-25] MEDS ORDERED: propofoL 200 MG/20 ML VIAL As Ordered ONE (10:58)
[2021-07-25 11:10] VITALS: BP 121/76
== END 2021-07-25 11:25 | disposition home or self-care (01) ==
LOC: M OPP 08:32
PROVIDERS: ATTEND Surgery
DX: R13.10 Dysphagia, unspecified (principal); K21.9 Gastro-esophageal reflux disease without esophagitis; K22.89 Other specified disease of esophagus; I10 Essential (primary) hypertension; M19.90 Unspecified osteoarthritis, unspecified site; R06.83 Snoring; G47.33 Obstructive sleep apnea (adult) (pediatric); F17.210 Nicotine dependence, cigarettes, uncomplicated; Z79.899 Other long term (current) drug therapy

== ENCOUNTER → 2021-08-04 | Outpatient (CLI) | payer OTHER ==
[~2021-08-04] MED LIST changes: -LIDOCAINE 2% 100MG/5ML SDV (FOR ANES.) As Ordered ONE; -NS 1,000 ML IV ONE; -propofoL 200 MG/20 ML VIAL As Ordered ONE
== END ==
LOC: M WUC 14:45
PROVIDERS: ATTEND Physician Assistant
DX: M25.541 Pain in joints of right hand (principal)

== ENCOUNTER → 2021-10-05 | Outpatient (CLI) | payer OTHER ==
[~2021-10-05] MED LIST changes: +BUPR-71; -BUPR150T5
[2021-10-05 12:27] LABS: ALBUMIN 3.4 GM/DL (3.2-5.2); ALT/SGPT 20 U/L (12-78); BILIRUBIN,TOTAL 0.5 MG/DL (0.2-1.0); BLOOD UREA NITROGEN 17 MG/DL (7-18); CALCIUM LEVEL 9.7 MG/DL (8.5-10.1); CARBON DIOXIDE LEVEL 29 MEQ/L (21-32); CHLORIDE LEVEL 107 MEQ/L (98-107); CHOLESTEROL LEVEL 140 MG/DL (<200); CHOLESTEROL RISK RATIO 2.857 (<5); CREATININE FOR GFR 0.96 MG/DL (0.70-1.30); GLOMERULAR FILTRATION RATE > 60.0 (>60); GLUCOSE, FASTING 94 MG/DL (70-100); HDL CHOLESTEROL 49 MG/DL (>40); LDL CHOLESTEROL 72 MG/DL (<100); NON-HDL-C 91 MG/DL; POTASSIUM SERUM 4.5 MEQ/L (3.5-5.1); SODIUM LEVEL 142 MEQ/L (136-145); TOTAL PROTEIN 6.4 GM/DL (6.4-8.2); TRIGLYCERIDES LEVEL 93 MG/DL (<150)
[2021-10-05 12:54] LABS: MALB URINE SIEMENS 20.8 MG/L
[2021-10-05 13:36] LABS: HEMOGLOBIN A1c 5.5 %
== END ==
LOC: M WUC 08:52
PROVIDERS: ATTEND Nurse Practitioner Family
DX: E78.2 Mixed hyperlipidemia (principal); R73.03 Prediabetes

== ENCOUNTER → 2021-10-06 | Outpatient (CLI) | payer OTHER ==
[2021-10-06 14:54] LABS: BASO # 0.1 10^3/uL (0.0-0.2); BASO % 0.8 % (0.0-1.0); EOS # 0.1 10^3/uL (0.0-0.5); EOS % 2.3 % (0.0-3.0); HEMATOCRIT 42.7 % (42.0-52.0); HEMOGLOBIN 14.1 g/dl (13.5-17.5); LYMPH # 1.6 10^3/uL (1.5-5.0); LYMPH % 26.9 % (24.0-44.0); MEAN CORPUSCULAR HEMOGLOBIN 30.4 pg (27.0-33.0); MONO # 0.8 10^3/uL (0.0-0.8); MONO % 13.3 % (2.0-8.0); NEUTROPHILS # 3.4 10^3/uL (1.5-8.5); NEUTROPHILS % 55.4 % (36.0-66.0); PLATELET COUNT, AUTOMATED 257 10^3/uL (150-450); RED BLOOD COUNT 4.64 10^6/uL (4.30-6.10); WHITE BLOOD COUNT 6.1 10^3/uL (4.0-10.0)
[2021-10-06 15:18] LABS: INR 0.93; PARTIAL THROMBOPLASTIN TIME 27.8 SECONDS (25.9-37.0); PROTHROMBIN TIME 12.9 SECONDS (12.7-14.5)
== END ==
LOC: M LAB 14:13
PROVIDERS: ATTEND Nurse Practitioner Family
DX: Z01.818 Encounter for other preprocedural examination (principal)

== ENCOUNTER 2021-10-13 13:47 | Outpatient (RCR) | payer OTHER | END 2021-10-17 | LOC: M PT 13:47 | PROVIDERS: ATTEND Physician Assistant Surgical | DX: M54.50 Low back pain, unspecified (principal) ==

== ENCOUNTER → 2022-01-17 | Outpatient (RCR) | payer OTHER | LOC: M PT 01-03 12:53 | PROVIDERS: ATTEND Physician Assistant Surgical | DX: M54.50 Low back pain, unspecified (principal) ==

== ENCOUNTER → 2022-02-02 | Outpatient (CLI) | payer OTHER ==
[~2022-02-02] MED LIST changes: +DULO1CAP4
== END ==
LOC: M SOG 13:31
PROVIDERS: ATTEND Physician Assistant
DX: M79.644 Pain in right finger(s) (principal)

== ENCOUNTER → 2022-02-06 | Outpatient (CLI) | payer OTHER | LOC: M LABSMTC 09:07 | PROVIDERS: ATTEND Anesthesiology | DX: Z01.812 Encounter for preprocedural laboratory examination (principal); Z11.52 Encounter for screening for COVID-19 ==

== ENCOUNTER 2022-02-09 09:29 | Day surgery (SDC) | payer OTHER ==
[~2022-02-09] VITALS: Ht 170.2 cm; Wt 88.5 kg
[2022-02-09] MEDS ORDERED: LR 1,000 ML IV SCH (09:50)
[2022-02-09] MEDS ORDERED: fentaNYL 100 MCG/2 ML INJECTION As Ordered ONE (10:20)
[2022-02-09] MEDS ORDERED: MIDAZOLAM INJ 2MG/2ML VIAL (J2250 PER 1MG) As Ordered ONE (10:20)
[2022-02-09] MEDS ORDERED: propofoL 200 MG/20 ML VIAL As Ordered ONE (10:21)
[2022-02-09] MEDS ORDERED: ONDANSETRON 4MG 2ML VIAL As Ordered ONE (10:22)
[2022-02-09] MEDS ORDERED: BUPIVACAINE HCL 0.25% 30ML VIAL As Ordered ONE (11:20)
[2022-02-09] MEDS ORDERED: BACITRACIN OINTMENT 30GM TUBE As Ordered ONE (11:20)
[2022-02-09 12:10] VITALS: BP 116/62
== END 2022-02-09 13:40 | disposition home or self-care (01) ==
LOC: M SDC 09:29
PROVIDERS: ATTEND Orthopaedic Surgery Hand Surgery
DX: D36.7 Benign neoplasm of other specified sites (principal); R73.03 Prediabetes; E78.00 Pure hypercholesterolemia, unspecified; F17.210 Nicotine dependence, cigarettes, uncomplicated
CPT/HCPCS: 11423; 88305; J2250; J2405; J3010

== ENCOUNTER 2022-02-13 14:25 | Outpatient (RCR) | payer OTHER | END 2022-02-16 | LOC: M PT 14:25 | PROVIDERS: ATTEND Physician Assistant Surgical | DX: M54.50 Low back pain, unspecified (principal) ==

== ENCOUNTER 2022-03-08 14:27 | Outpatient (RCR) | payer OTHER | END 2022-03-19 | LOC: M PT 14:27 | PROVIDERS: ATTEND Physician Assistant Surgical | DX: M54.50 Low back pain, unspecified (principal) ==

== ENCOUNTER → 2022-04-15 | Outpatient (CLI) | payer OTHER ==
[~2022-04-15] MED LIST changes: +AIMO70IN2; +DIVA500T94 PO
== END ==
LOC: M LABSMTC 10:12
PROVIDERS: ATTEND Anesthesiology
DX: Z01.812 Encounter for preprocedural laboratory examination (principal); Z11.52 Encounter for screening for COVID-19

== ENCOUNTER 2022-04-18 06:50 | Day surgery (SDC) | payer OTHER ==
[~2022-04-18] VITALS: Ht 170.2 cm; Wt 97.0 kg
[~2022-04-18 06:50] MED LIST changes: +NS 1,000 ML IV ONE
[2022-04-18] MEDS ORDERED: MIDAZOLAM INJ 2MG/2ML VIAL (J2250 PER 1MG) As Ordered ONE (07:06)
[2022-04-18] MEDS ORDERED: LIDOCAINE 2% 100MG/5ML SDV (FOR ANES.) As Ordered ONE (07:06)
[2022-04-18] MEDS ORDERED: propofoL 200 MG/20 ML VIAL As Ordered ONE ×2 (07:06→08:41)
[2022-04-18 09:27] VITALS: BP 124/72
== END 2022-04-18 09:43 | disposition home or self-care (01) ==
LOC: M OPP 06:50
PROVIDERS: ATTEND Surgery
DX: Z12.11 Encounter for screening for malignant neoplasm of colon (principal); K63.5 Polyp of colon; K21.9 Gastro-esophageal reflux disease without esophagitis; E78.00 Pure hypercholesterolemia, unspecified; G47.30 Sleep apnea, unspecified; Z99.89 Dependence on other enabling machines and devices; Z79.02 Long term (current) use of antithrombotics/antiplatelets; Z79.899 Other long term (current) drug therapy; F17.200 Nicotine dependence, unspecified, uncomplicated
CPT/HCPCS: 45380; 88305; J2250

== ENCOUNTER 2022-06-06 18:51 | Emergency (ER) | payer OTHER ==
[~2022-06-06] VITALS: Ht 170.2 cm; Wt 94.5 kg
[~2022-06-06 18:51] MED LIST changes: -NS 1,000 ML IV ONE
[2022-06-07] MEDS ORDERED: NS 1,000 ML IV ONE
[2022-06-07] MEDS ORDERED: ONDANSETRON 4MG 2ML VIAL IV ONE
[2022-06-07] MEDS ORDERED: ISOVUE-370 76% 100ML VIAL As Ordered ONE (00:25)
[2022-06-07 00:42] VITALS: BP 142/88
[2022-06-07 00:43] LABS: BASO # 0.1 10^3/uL (0.0-0.2); BASO % 0.8 % (0.0-1.0); EOS # 0.1 10^3/uL (0.0-0.5); EOS % 1.9 % (0.0-3.0); HEMATOCRIT 47.8 % (42.0-52.0); HEMOGLOBIN 15.4 g/dl (13.5-17.5); LYMPH # 2.4 10^3/uL (1.5-5.0); LYMPH % 36.9 % (24.0-44.0); MEAN CORPUSCULAR HEMOGLOBIN 29.6 pg (27.0-33.0); MEAN CORPUSCULAR HGB CONC 32.2 g/dl (32.0-36.5); MEAN CORPUSCULAR VOLUME 91.9 fl (80.0-96.0); MONO # 0.8 10^3/uL (0.0-0.8); MONO % 12.7 % (2.0-8.0); NEUTROPHILS % 46.8 % (36.0-66.0); PLATELET COUNT, AUTOMATED 240 10^3/uL (150-450); WHITE BLOOD COUNT 6.4 10^3/uL (4.0-10.0)
[2022-06-07 01:01] LABS: ALBUMIN 3.8 G/DL (3.2-5.2); BILIRUBIN,DIRECT 0.2 MG/DL (<0.4); BILIRUBIN,TOTAL 0.6 MG/DL (0.3-1.2); TOTAL PROTEIN 6.8 G/DL (5.7-8.2)
[2022-06-07] MEDS ORDERED: ONDA4TAB6 PO (01:25)
== END 2022-06-07 02:10 | disposition home or self-care (01) ==
LOC: M ED 19:52
DX: R10.9 Unspecified abdominal pain (principal); R11.2 Nausea with vomiting, unspecified; I10 Essential (primary) hypertension; J45.909 Unspecified asthma, uncomplicated; K21.9 Gastro-esophageal reflux disease without esophagitis; F17.200 Nicotine dependence, unspecified, uncomplicated; Z79.899 Other long term (current) drug therapy
CPT/HCPCS: 74177; 80047; 80076; 83690; 85025; 96374; 99284; J2405

== ENCOUNTER → 2022-06-19 | Outpatient (CLI) | payer OTHER ==
[~2022-06-19] MED LIST changes: +ONDA4TAB6 PO
== END ==
LOC: M RAD 10:16
PROVIDERS: ATTEND Nurse Practitioner Family
DX: M25.512 Pain in left shoulder (principal); M25.522 Pain in left elbow

== ENCOUNTER 2023-01-05 13:40 | Emergency (ER) | payer OTHER ==
[~2023-01-05] VITALS: Ht 152.4 cm; Wt 85.0 kg
[~2023-01-05 13:40] MED LIST changes: +TOPI-254 PO; -TOPI50TA9 PO
[2023-01-05] MEDS ORDERED: METOCLOPRAMIDE INJ 10MG/2ML VIAL IV ONE (14:05)
[2023-01-05] MEDS ORDERED: KETOROLAC 30 MG/ML 1ML VIAL IV ONE (14:05)
[2023-01-05] MEDS ORDERED: NS 1,000 ML IV ONE (14:05)
[2023-01-05] MEDS ORDERED: diphenhydrAMINE 50MG/ML VIAL IV ONE (14:05)
[2023-01-05 14:33] LABS: BASO # 0.1 10^3/uL (0.0-0.2); BASO % 0.8 % (0.0-1.0); EOS # 0.1 10^3/uL (0.0-0.5); EOS % 1.2 % (0.0-3.0); HEMATOCRIT 51.5 % (42.0-52.0); HEMOGLOBIN 17.2 g/dl (13.5-17.5); LYMPH # 1.8 10^3/uL (1.5-5.0); LYMPH % 28.2 % (24.0-44.0); MEAN CORPUSCULAR HEMOGLOBIN 30.1 pg (27.0-33.0); MEAN CORPUSCULAR HGB CONC 33.4 g/dl (32.0-36.5); MEAN CORPUSCULAR VOLUME 90.2 fl (80.0-96.0); MONO # 0.6 10^3/uL (0.0-0.8); MONO % 9.8 % (2.0-8.0); NEUTROPHILS # 3.9 10^3/uL (1.5-8.5); NEUTROPHILS % 59.1 % (36.0-66.0); PLATELET COUNT, AUTOMATED 285 10^3/uL (150-450); RED BLOOD COUNT 5.71 10^6/uL (4.30-6.10); WHITE BLOOD COUNT 6.5 10^3/uL (4.0-10.0)
[2023-01-05 15:04] LABS: LIPASE 42 U/L (12-53)
[2023-01-05 15:06] LABS: ALBUMIN 4.1 G/DL (3.2-5.2); ALKALINE PHOSPHATASE 82 U/L (46-116); ALT/SGPT 13 U/L (7.0-40); AST/SGOT < 8 U/L (<34); BILIRUBIN,DIRECT 0.2 MG/DL (<0.4); BILIRUBIN,TOTAL 0.6 MG/DL (0.3-1.2); BLOOD UREA NITROGEN 12 MG/DL (9-23); CALCIUM LEVEL 10.1 MG/DL (8.5-10.1); CARBON DIOXIDE LEVEL 25 MMOL/L (20-31); CHLORIDE LEVEL 106 MMOL/L (98-107); CREATININE FOR GFR 1.03 MG/DL (0.70-1.30); GLOMERULAR FILTRATION RATE > 60.0 (>60); GLUCOSE, FASTING 96 MG/DL (60-100); POTASSIUM SERUM 4.2 MMOL/L (3.5-5.1); SODIUM LEVEL 139 MMOL/L (136-145); TOTAL PROTEIN 7.1 G/DL (5.7-8.2)
[2023-01-05] MEDS ORDERED: PANTOPRAZOLE 40MG VIAL IV ONE (15:45)
[2023-01-05] MEDS ORDERED: SUCRALFATE SUSP 1GM/10ML UD PO ONE (15:45)
[2023-01-05] MEDS ORDERED: MAALOX 30 ML SUSP *UDC PO ONE (15:45)
[2023-01-05 17:28] VITALS: BP 109/66; TEMP 97.4; O2SAT 96
== END 2023-01-05 18:00 | disposition home or self-care (01) ==
LOC: EDBD 13:40 → M ED 13:40
DX: G43.909 Migraine, unspecified, not intractable, without status migrainosus (principal); K29.00 Acute gastritis without bleeding; I10 Essential (primary) hypertension; F32.A Depression, unspecified; K21.9 Gastro-esophageal reflux disease without esophagitis; F17.210 Nicotine dependence, cigarettes, uncomplicated
CPT/HCPCS: 80048; 80076; 83690; 85025; 93041; 96374; 96375; 99284; C9113; J1200; J1885; J2765

== ENCOUNTER 2023-02-21 13:42 | Emergency (ER) | payer OTHER ==
[~2023-02-21] VITALS: Ht 170.2 cm; Wt 88.3 kg
[2023-02-21] MEDS ORDERED: TOPI-254 (14:16)
[2023-02-21] MEDS ORDERED: CETI-24 (14:16)
[2023-02-21] MEDS ORDERED: FLUT50SP17 (14:16)
[2023-02-21] MEDS ORDERED: diphenhydrAMINE 50MG/ML VIAL IV STA (18:04)
[2023-02-21] MEDS ORDERED: dexAMETHasone 20MG/5ML VIAL IV ONE (18:05)
[2023-02-21] MEDS ORDERED: NS 1,000 ML IV ONE (18:05)
[2023-02-21] MEDS ORDERED: METOCLOPRAMIDE INJ 10MG/2ML VIAL IV ONE (18:05)
[2023-02-21 19:00] LABS: BASO # 0.1 10^3/uL (0.0-0.2); BASO % 1.4 % (0.0-1.0); EOS # 0.2 10^3/uL (0.0-0.5); EOS % 3.4 % (0.0-3.0); HEMATOCRIT 44.2 % (42.0-52.0); HEMOGLOBIN 14.3 g/dl (13.5-17.5); LYMPH % 34.2 % (24.0-44.0); MEAN CORPUSCULAR HEMOGLOBIN 30.4 pg (27.0-33.0); MEAN CORPUSCULAR HGB CONC 32.4 g/dl (32.0-36.5); MONO # 0.7 10^3/uL (0.0-0.8); MONO % 12.2 % (2.0-8.0); NEUTROPHILS # 2.8 10^3/uL (1.5-8.5); NEUTROPHILS % 48.3 % (36.0-66.0); PLATELET COUNT, AUTOMATED 252 10^3/uL (150-450); WHITE BLOOD COUNT 5.8 10^3/uL (4.0-10.0)
[2023-02-21 19:11] LABS: LIPASE 43 U/L (12-53)
[2023-02-21 19:13] LABS: ALKALINE PHOSPHATASE 66 U/L (46-116); ALT/SGPT 10 U/L (7.0-40); AST/SGOT 14 U/L (<34); BILIRUBIN,DIRECT < 0.1 MG/DL (<0.4); BILIRUBIN,TOTAL 0.3 MG/DL (0.3-1.2); BLOOD UREA NITROGEN 16 MG/DL (9-23); CALCIUM LEVEL 9.4 MG/DL (8.5-10.1); CARBON DIOXIDE LEVEL 29 MMOL/L (20-31); CHLORIDE LEVEL 109 MMOL/L (98-107); CREATININE FOR GFR 0.99 MG/DL (0.70-1.30); GLOMERULAR FILTRATION RATE > 60.0 (>60); GLUCOSE, FASTING 83 MG/DL (60-100); MAGNESIUM LEVEL 2.2 MG/DL (1.8-2.4); POTASSIUM SERUM 4.5 MMOL/L (3.5-5.1); SODIUM LEVEL 143 MMOL/L (136-145); TOTAL PROTEIN 6.6 G/DL (5.7-8.2)
[2023-02-21 19:41] LABS: ERYTHROCYTE SEDIMENTATION RATE 9 mm/hr (0-15)
[2023-02-21] MEDS ORDERED: KETOROLAC 30 MG/ML 1ML VIAL IV ONE (20:10)
[2023-02-21 21:51] VITALS: BP 118/65; TEMP 98.2; O2SAT 95
== END 2023-02-21 21:53 | disposition home or self-care (01) ==
LOC: M ED 13:42
DX: G43.909 Migraine, unspecified, not intractable, without status migrainosus (principal); I10 Essential (primary) hypertension; E78.5 Hyperlipidemia, unspecified; J45.909 Unspecified asthma, uncomplicated; K21.9 Gastro-esophageal reflux disease without esophagitis; F17.200 Nicotine dependence, unspecified, uncomplicated; Z79.84 Long term (current) use of oral hypoglycemic drugs; Z79.899 Other long term (current) drug therapy; Z79.51 Long term (current) use of inhaled steroids
CPT/HCPCS: 70450; 72125; 80048; 80076; 81001; 83690; 83735; 85025; 85652; 86140; 96374; 96375; 99284; J1100; J1200; J1885; J2765

== ENCOUNTER 2023-02-21 14:06 | Emergency (ER) | payer OTHER ==
[~2023-02-21] VITALS: Ht 170.2 cm; Wt 88.2 kg
[2023-02-21 14:07] VITALS: BP 116/61; TEMP 98.4; O2SAT 97
[2023-02-21] MEDS ORDERED: TOPI-254 (14:16)
[2023-02-21] MEDS ORDERED: FLUT50SP17 (14:16)
[2023-02-21] MEDS ORDERED: CETI-24 (14:16)
== END 2023-02-21 14:30 | disposition home or self-care (01) ==
LOC: M ED 14:06
DX: R51.9 Headache, unspecified (principal); Z53.21 Procedure and treatment not carried out due to patient leaving prior to being seen by health care provider

== ENCOUNTER 2023-05-31 14:39 | Emergency (ER) | payer OTHER ==
[~2023-05-31] VITALS: Ht 170.2 cm; Wt 84.9 kg
[~2023-05-31 14:39] MED LIST changes: +CETI-24; +FLUTISP; +TOPI-21; +TOPI-21 PO; -TOPI-254 PO
[2023-05-31] MEDS ORDERED: CYCLOBENZAPRINE 10MG TABLET PO ONE (18:00)
[2023-05-31] MEDS ORDERED: KETOROLAC 60MG 2ML VIAL IM ONE (18:00)
[2023-05-31] MEDS ORDERED: LIDOCAINE 5% (LIDODERM) PATCH TD ONE (18:00)
[2023-05-31 20:08] VITALS: BP 141/83; TEMP 98.7; O2SAT 98
[2023-05-31] MEDS ORDERED: CYCL-707 PO (20:22)
[2023-05-31] MEDS ORDERED: LIDO5DIS41 TD (20:22)
[2023-05-31] MEDS ORDERED: KETO10TAB PO (20:22)
== END 2023-05-31 20:30 | disposition home or self-care (01) ==
LOC: M ED 14:39
DX: M54.50 Low back pain, unspecified (principal); I10 Essential (primary) hypertension; J45.909 Unspecified asthma, uncomplicated; G47.33 Obstructive sleep apnea (adult) (pediatric); K21.9 Gastro-esophageal reflux disease without esophagitis; R51.9 Headache, unspecified; F41.9 Anxiety disorder, unspecified; F32.A Depression, unspecified; F17.200 Nicotine dependence, unspecified, uncomplicated; F12.10 Cannabis abuse, uncomplicated; Z79.84 Long term (current) use of oral hypoglycemic drugs; Z79.51 Long term (current) use of inhaled steroids; Z79.899 Other long term (current) drug therapy
CPT/HCPCS: 72110; 99283; J1885

== ENCOUNTER 2023-06-17 14:50 | Emergency (ER) | payer OTHER ==
[~2023-06-17] VITALS: Ht 175.3 cm; Wt 83.3 kg
[~2023-06-17 14:50] MED LIST changes: +CYCL-707 PO; +KETO10TAB PO
[2023-06-17 16:31] LABS: BASO % 0.7 % (0.0-1.0); EOS # 0.2 10^3/uL (0.0-0.5); EOS % 2.8 % (0.0-3.0); HEMATOCRIT 44.3 % (42.0-52.0); HEMOGLOBIN 14.9 g/dl (13.5-17.5); LYMPH # 2.3 10^3/uL (1.5-5.0); LYMPH % 41.1 % (24.0-44.0); MEAN CORPUSCULAR HEMOGLOBIN 30.3 pg (27.0-33.0); MEAN CORPUSCULAR HGB CONC 33.6 g/dl (32.0-36.5); MEAN CORPUSCULAR VOLUME 90.2 fl (80.0-96.0); MONO # 0.7 10^3/uL (0.0-0.8); MONO % 11.9 % (2.0-8.0); NEUTROPHILS # 2.4 10^3/uL (1.5-8.5); PLATELET COUNT, AUTOMATED 243 10^3/uL (150-450); RED BLOOD COUNT 4.91 10^6/uL (4.30-6.10); WHITE BLOOD COUNT 5.6 10^3/uL (4.0-10.0)
[2023-06-17 17:01] LABS: CK-MB VALUE MASS < 1.0 NG/ML (<3.6)
[2023-06-17 17:02] LABS: BLOOD UREA NITROGEN 10 MG/DL (9-23); CALCIUM LEVEL 8.9 MG/DL (8.5-10.1); CARBON DIOXIDE LEVEL 27 MMOL/L (20-31); CHLORIDE LEVEL 108 MMOL/L (98-107); CREATININE FOR GFR 0.82 MG/DL (0.70-1.30); GLOMERULAR FILTRATION RATE > 60.0 (>60); GLUCOSE, FASTING 84 MG/DL (60-100); POTASSIUM SERUM 4.1 MMOL/L (3.5-5.1); SODIUM LEVEL 139 MMOL/L (136-145)
[2023-06-17 17:03] LABS: CPK CREATINE PHOSPHOKINASE 96 U/L (46-171); MB/CK RELATIVE INDEX 1.04 (< OR =4)
[2023-06-17 17:15] VITALS: BP 125/68; TEMP 96.8; O2SAT 99
[2023-06-17] MEDS ORDERED: ISOVUE-370 76% 100ML VIAL As Ordered ONE (17:32)
== END 2023-06-17 18:08 | disposition left against medical advice (07) ==
LOC: EDBD 14:50 → M ED 16:20
DX: R07.9 Chest pain, unspecified (principal); M54.50 Low back pain, unspecified; R00.1 Bradycardia, unspecified; I45.9 Conduction disorder, unspecified; E11.9 Type 2 diabetes mellitus without complications; E78.5 Hyperlipidemia, unspecified; F17.210 Nicotine dependence, cigarettes, uncomplicated; F10.10 Alcohol abuse, uncomplicated; Z79.899 Other long term (current) drug therapy; Z79.51 Long term (current) use of inhaled steroids; Z79.84 Long term (current) use of oral hypoglycemic drugs

== ENCOUNTER → 2024-07-20 | Outpatient (REF) | payer OTHER ==
[~2024-07-20] MED LIST changes: -CYCL5TAB PO; +CYCL5TAB4 PO; +FLUO-365 PO; -FLUO20CA22 PO; +GABA-1172 PO; -GABA-282 PO; +ONDA-282 PO; -ONDA4TAB6 PO
[2024-07-20 15:08] LABS: ALBUMIN 3.7 G/DL (3.2-5.2); ALKALINE PHOSPHATASE 69 U/L (40-129); ALT/SGPT 36 U/L (7.0-40); AST/SGOT 23 U/L (<34); BILIRUBIN,TOTAL 0.5 MG/DL (0.3-1.2); BLOOD UREA NITROGEN 14 MG/DL (9-23); CALCIUM LEVEL 9.1 MG/DL (8.5-10.1); CARBON DIOXIDE LEVEL 28 MMOL/L (20-31); CHLORIDE LEVEL 107 MMOL/L (98-107); CHOLESTEROL LEVEL 223 MG/DL (<200); CHOLESTEROL RISK RATIO 4.97 (<5); CREATININE FOR GFR 0.89 MG/DL (0.70-1.30); GLOMERULAR FILTRATION RATE > 60.0 (>60); GLUCOSE, FASTING 102 MG/DL (60-100); HDL CHOLESTEROL 44.8 MG/DL (>40); NON-HDL-C 178.2 MG/DL; POTASSIUM SERUM 4.6 MMOL/L (3.5-5.1); SODIUM LEVEL 140 MMOL/L (136-145); TOTAL PROTEIN 6.8 G/DL (5.7-8.2); TRIGLYCERIDES LEVEL 171 MG/DL (<150)
[2024-07-20 15:09] LABS: THYROID STIMULATING HORMONE 1.514 uIU/ML (0.55-4.78)
[2024-07-20 15:10] LABS: TOTAL 25(OH) VITAMIN D 15.4 NG/ML (20.0-100.0)
[2024-07-20 15:27] LABS: HEMATOCRIT 46.9 % (42.0-52.0); HEMOGLOBIN 15.2 g/dl (13.5-17.5); MEAN CORPUSCULAR HEMOGLOBIN 29.7 pg (27.0-33.0); MEAN CORPUSCULAR HGB CONC 32.4 g/dl (32.0-36.5); MEAN CORPUSCULAR VOLUME 91.8 fl (80.0-96.0); PLATELET COUNT, AUTOMATED 289 10^3/uL (150-450); RED BLOOD COUNT 5.11 10^6/uL (4.30-6.10); WHITE BLOOD COUNT 5.7 10^3/uL (4.0-10.0)
== END ==
LOC: M LAB REF 12:15
PROVIDERS: ATTEND Student in an Organized Health Care Education/Training Program
DX: Z00.01 Encounter for general adult medical examination with abnormal findings (principal)